=== PATIENT | female | born 1960 | race Caucasian/White ===

== ENCOUNTER 2024-11-13 11:53 | Inpatient (IN) | payer MEDICARE, SELFPAY ==
[2024-11-13 11:55] VITALS: BP 154/96; PULSE 68; RESP 16; TEMP 36.7; O2SAT 97
--- NOTE | 2024-11-13 12:15 | DI.RAD_ITS ---
Exam(s) XR KNEE LT 4V AP,LAT,PRANAY,PAT XR TIB/FIB LT EXAM: XR KNEE LT 4V AP,LAT,PRANAY,PAT and XR tib/fib LT CLINICAL HISTORY: fall off ladder. TECHNIQUE: 2D digital imaging was performed of the left knee. Seven images were obtained. Merchant ,AP, lateral and PA tunnel views were obtained. COMPARISON: There are no priors for comparison. FINDINGS: BONES: There is an acute comminuted fracture involving the anterior tibial tuberosity and anterior t ibia. There is proximal displacement of the small fracture fragments. There is also resultant proxi mal migration of the patella with patella [place]. No bony destructive lesion is seen. JOINTS: There is also anterior displacement of the tibia relative to the femoral condyles. No joint effusion is seen. No loose body. SOFT TISSUE: Normal. IMPRESSION: 1. Comminuted displaced fracture involving the anterior tibial tuberosity in anterior tibial plateau. There is distraction of the fracture fragments proximally with patella [place]. 2. Anterior subluxation of the tibia relative to the femoral condyles. DATA REPOSITORY: RADIATION DOSE DELIVERED:
--- NOTE | 2024-11-13 12:19 | ED.GENADUL_ITS ---
Discharge Plan Disposition Patient Disposition: Home Condition: Fair Discharge Details Clinical Impression: Fracture of left tibial plateau Primary Care Provider: Unknown,Unknown ED Provider: Nell Chinchilla Discharge Instructions Instructions: Oxycodone Additional Instructions: As we discussed, you suffered a significant injury today. You have a fracture and ligamentous injury to the left knee after falling. This will need to be surgically managed as noted below by Dr. Khan. Plan is to have surgical fixation of this this coming Tuesday. Likely surgical time is around 11 AM but they will call to finalize times. Please encourage rest, ice, elevation. Tylenol and/or ibuprofen as needed for discomfort, please take as directed on the packaging. You may use the oxycodone as prescribed. You may use one 5 mg tablet every 6 hours as needed for discomfort. Do not drink alcohol or drive while using this medication. Take only as prescribed and keep this in a safe place. If your pain does continue to increase or you develop increased swelling or other new/worsening symptoms, please return immediately to the hospital for reevaluation. If you have any questions regarding your orthopedic care, please call Dr. Khan's office, number listed below. Orthopaedic Instructions: - YOu should keep the knee immobilizer on at all times. - Keep the leg elevated as much as possible with foot slightly higher than the knee. - You may loosen the knee immobilizer and inspect the skin on the front of the knee. - You should use the walker to mobilize and may place the foot on the ground but not stepping on it fully (touchdown weight-bearing) - Utilize Ibuprofen and Tylenol for pain. - Start taking a baby Aspirin 81mg twice a day. - Surgery will be on Tuesday. Likely arriving at [facility] at 11am but you will be called. Referrals: Jean-Paul Khan MD [ [facility] STAFF PHYSICIAN] - [facility] General Date/Time Provider Initiated Documentation: 11/13/24 12:05 . Limitations to Documentation: no limitations . Information obtained by: patient and RN notes reviewed . History of Present Illness 64 year old F presents to the emergency department with the chief complaint of left knee pain after fall from ladder, described as severe, Quality is described as stabbing, and is localized to the left and lower extremity. Patient reports no radiation. Patient started experiencing this minute(s) and it has been constant. Immobilization improves symptom(s), Movement worsens symptoms . Patient notes no other symptoms.. Patient did receive the following treatments prior to arrival, none Related Data Allergies Allergy/AdvReac Type Severity Reaction Status Date / Time No Known Allergies Allergy Unverified 11/13/24 11:57 General Stated Complaint: Orthopedic ANNELIESE: 4 Review of Systems Constitutional Constitutional: Reports as per HPI, Denies chills, Denies fever(s) and Denies headache(s) ENT Ears, Nose, Mouth, and Throat: Denies headache(s) Cardiovascular Cardiovascular: Reports as per HPI Respiratory Respiratory: Reports as per HPI and Denies cough Musculoskeletal Musculoskeletal: Reports as per HPI and Denies tingling Integumentary/Breasts Skin/Breast: Reports as per HPI, Denies rash and Denies wounds Neurologic Neurologic: Reports as per HPI, Denies headache(s), Denies tingling and Denies paresthesias Exam Const General: cooperative, healthy appearing, comfortable, no acute distress, well developed and well groomed Nutritional Appearance: average body habitus and well nourished Orientation: alert and awake Resp Effort & Inspection: normal respiratory effort, able to speak in complete sentences and no respiratory distress Cardio Rate: regular rate Rhythm: regular rhythm Skin General skin exam: no rashes or lesions noted Lesions: no lesions Rashes: no rashes Trauma: no lacerations or abrasions Neuro General: patient alert and patient awake Cognition: normal cognition Speech: speech normal Motor: muscle tone normal throughout Sensory Exam: no sensory deficits noted Extrem Knee images: 2 1. Area of large swelling and maximal tenderness. 2+ distal pulses. Sensation intact. Full ROM of ankle. No pain in the calf, compartments are soft. No abnormality of the lateral joint line or pain in this area. No tenderness posteriorly. Did not range the knee with the noteable abnoramlity and pain with movement. No pain in the thigh with palpation Course Vital Signs Vital signs: Vital Signs Temperature 36.7 C 11/13/24 11:55 Pulse 68 11/13/24 11:55 Respiratory Rate 16 11/13/24 11:55 Blood Pressure 154/96 H 11/13/24 11:55 Pulse Oximetry 97 11/13/24 11:55 Temperature 36.7 C 11/13/24 11:55 Pulse 68 11/13/24 11:55 Respiratory Rate 16 11/13/24 11:55 Blood Pressure 154/96 H 11/13/24 11:55 Pulse Oximetry 97 11/13/24 11:55 Oxygen Delivery Method Room Air 11/13/24 11:55 Oxygen Flow Rate 0 11/13/24 11:55 Medical Decision Making Patient is a 64-year-old female brought in via EMS chief complaint of left knee pain. She reports that she was climbing an indoor short ladder that goes up to a loft and at the fifth rung the ladder kicked out sliding and she landed directly on the left knee. She did not fall completely to ground, did not strike her head, no loss of conscious. Denies any neck or back pain or other injuries. She denies any numbness or tingling. States that she tried to adjust the leg she could bear weight but found she was unable to do so. No previous surgeries or injuries to his knee. On exam, patient appears nontoxic. Hemodynamically stable. She close distal pulses. Full range of motion of the ankle. Sensation is intact in the lower extremity. No pain in the thigh. She has significant swelling to the anterior medial aspect of the left tibia. No palpable deformity at the patella or laterally but area of swelling is concerning for deformity. I do not appreciate a joint effusion but due to the swelling some of my exam is quite limited and I am concerned for potential tibial plateau fracture. Patient reports that her pain is well-controlled with ice, will hold off on any further medications at this point. Will begin with x-ray for further evaluation. No indication to suggest neurovascular injury, dislocation. XR reviewed by radiologist and myself: IMPRESSION: 1. Comminuted displaced fracture involving the anterior tibial tuberosity in anterior tibial plateau. There is distraction of the fracture fragments proximally with patella [place]. 2. Anterior subluxation of the tibia relative to the femoral condyles. Contacted orthopedics and consulted with Dr. Khan, will obtain CT for further evaluation of the sublxuation. Discussed findings with the patient and completed the neurovascular exam once again which remains stable and intact. No increase in pain, she continues to decline anything beyond ice. CT reviewed by Dr. Khan, the contrast tapers off too early, will need to reimage. Radiologist recommends extending the contrast. Dr. Khan completed doppler, does not note any concerning vascular abnormality. He advised that subluxation is reducted. Repeat CTA pending. Patient has excellent renal function but we are hydrating as this is second contrast load. Patient in knee immobilizer. Will be evaluated by PT with plan for touch down weight bearing per Dr. Khan. Discussed disposition with patient. If the repeat CT does not show vascular injury, plan with patient, Dr. Khan and myself is to send homw after PT consult, in knee immobilizer with plan for surgical intervention on Tuesday. While pain is well ocntrolled will send home with small amoutn of oxycodone. At the end of my shift, care transitioned to oncoming provider with repeat CTA pending. Patient continues to have well-controlled pain. Physical therapy will be helping to ensure that she is able to go home with a walker and weight-bear as tolerated. Patient is in a long-leg knee immobilizer. Plan for surgery this Tuesday with Dr. Khan. Supportive care encouraged occluding rest, ice, elevation was encouraged. Will send home with a few oxycodone. Patient needs to have the results of the final CTA to ensure no vascular issue. If vascular injury is noted by radiologist, this will need to be sent to [facility] for vascular surgery to review and get their input. If this does not show any vascular injury, the previously mentioned plan may be set forth. Quality:SDOH Health Related Social Needs: 2 No Data to Display PFSH All Active Problems (Updated 11/13/24 @ 16:59 by BERNIE Bazan) Fracture of left tibial plateau (Acute) Social History Smoking/Tobacco Use Status: Never Smoking risk assessment performed?: Yes Alcohol Intake: never Substance use type: does not use
--- NOTE | 2024-11-13 13:57 | W.ORTHOCONSU ---
Date of service: 11/13/24 Time of Service: 13:57 History of Present Illness Narrative: Shellie is a 64-year-old active female who was on a short ladder to a loft area of her camp when the ladder fell out her anterior left knee landed directly on the ladder rung. She had immediate pain. She tried to bear weight but had difficulties. She had notable swelling. She denies numbness or tingling. She denies any distal discoloration or swelling of the leg. She denies any previous injury to the left knee. No previous surgery of the left knee. No head trauma. No recent illness or sick contacts. Consults Consult date: 11/13/24 Requesting physician: Nell Chinchilla Consult Reason Left knee injury Assessment and Plan Assessment and plan (1) Fracture of left tibial plateau: Status: Acute Assessment and plan: Shellie is a 64-year-old female who has a fracture of her left tibial plateau. This is a very interesting pattern that is usually seen in kids. However, this is likely because she landed directly on one of the rungs of the ladder causing a stress point about the tubercle. This does need surgical treatment. The knee appeared subluxed on initial x-rays although reduced on CT scan. There likely could be some ligamentous instability that predates this injury or occurred due to the injury itself. However, the knee is now reduced. She has excellent Doppler pulses yet there are some abnormalities on the initial CT with contrast and therefore this will be repeated although unlikely to show significant abnormalities but if it did I recommend consulting with vascular surgery. Otherwise, I would recommend proceeding with operative fixation of the fracture fragments and the patellar ligament. Given that the knee is reduced this can be done in a delayed fashion. I reviewed the surgical details with her and her sister. I discussed the complexity of her case and the uniqueness of it. My initial assessment of the fracture would be that some screw stabilization of the fracture fragments of the tubercle with suture stabilization as well would be necessary. I do not think the lateral rim needs to be fixed given that it is relatively limited with weightbearing, lateral, and not extending into the metaphysis nor across the weightbearing portion of the joint. I did discuss potential complication such as bleeding, infection, pain, stiffness. I also briefly reviewed the rehabilitation time and plan with use of a knee immobilizer and slow progression of weightbearing and range of motion over the course of months. All of her questions were answered and she would like to proceed. There is no current time in the operating room today due to other add-on cases which are more urgent. However, I could complete this case on Tuesday. I recommend that she keeps the left knee in a knee immobilizer. She may do some skin inspection about the anterior knee but otherwise should have it on at all times. Touchdown weightbearing with use of a walker. Tylenol and ibuprofen for primary pain relief. Strong narcotics if necessary. Aspirin 81 mg twice daily for blood clot prevention. Surgery on Tuesday, n.p.o. after midnight at midnight. She received a phone call in to discuss time of arrival. Review of Systems All systems reviewed & are unremarkable except as noted in HPI and below PFSH All Active Problems (Updated 11/13/24 @ 15:22 by Jean-Paul Khan MD) Fracture of left tibial plateau (Acute) Social History Smoking/Tobacco Use Status: Never Smoking risk assessment performed?: Yes Alcohol Intake: never Substance use type: does not use Exam Narrative Exam Narrative: Sitting up in the wheelchair. No acute distress. Alert and orient x 3. Evaluation of left lower extremity shows notable swelling over the anterior aspect of the left knee. There is some swelling extending laterally as well. However, this seems to localize mostly to the area of the knee. There is no notable swelling from the midportion of the leg distal. There is pain to palpation about the anterior aspect of the knee with some crepitus over the proximal?anterior tibia. There is some mild pain with palpation of the lateral joint line. No significant pain with medial joint line. Range of motion was not tested. She is unable to perform a straight leg raise. The patella is noted to be in a patella jose position. Sensation intact to light touch over the deep and superficial peroneal nerve and tibial nerve. Palpable and dopplerable PT and DP pulse. No gross instability with varus and valgus stress testing of the knee. Resp Effort & Inspection: normal respiratory effort Auscultation: clear to auscultation bilaterally Cardio Rate: regular rate Rhythm: regular rhythm Results Last Vital Signs Temp 36.7 C 11/13/24 11:55 Pulse 68 11/13/24 11:55 Resp 16 11/13/24 11:55 BP 154/96 H 11/13/24 11:55 Pulse Ox 97 11/13/24 11:55 Labs 11/13/24 14:14 11/13/24 14:14 Imaging Imaging Studies: X-ray of the left knee shows a tibial tubercle fracture with proximal migration of the fracture fragments and the patella. The tibia is anterior subluxed. CT scan of the left knee with contrast shows now a reduced knee. There are multiple fracture fragments of the tibial tubercle anteriorly which also extends laterally around the lateral rim of the tibial plateau to the level of the proximal tib-fib joint. There is no significant depression or malpositioning of these components. There is no transverse component of the fracture. There is no involvement of the medial tibial plateau. Contrast is seen through the popliteal space and distal however the contrast does diminish at the level the proximal leg and there is some narrowing or decrease in caliber of the popliteal artery at the level of the knee joint. Is unclear if this is technical or a true vessel injury. I discussed the case with radiologist who recommended a repeat study.
--- NOTE | 2024-11-13 14:00 | DI.CT_ITS ---
Exam(s) CT LOWER EXTREMITY LT CTA EXAM: CT LOWER EXTREMITY LT CTA CLINICAL HISTORY: knee subluxation and tibia fracture TECHNIQUE: CTA with field of view over the knee and mid upper calf, as per request COMPARISON: CR XR TIB/FIB LT from 11/13/2024 CR XR KNEE LT 4V AP,LAT,PRANAY,PAT from 11/13/2024 FINDINGS: OSSEOUS: The previously described tibial plateau and anterior tibial tubercle displaced fractures are again noted. There are no fractures of the femoral condyles nor of the patella in the fibular head a nd neck appear intact. VASCULAR: The visualized distal SFA is unremarkable as is the proximal popliteal artery. However, the re is significant intraluminal contrast diminution in the distal popliteal artery and in the tibioper paul trunk and there is no contrast column in the calf runoff vessels. No evidence of popliteal artery aneurysm. IMPRESSION: Suspicious for possible vascular compromise/occlusion at and below the mid popliteal artery. However, there is also possibly that this finding may be artifact related to technique. Correlation with peda l pulses recommended. If clinically indicated I recommend repeating bilateral aortoiliac CTA. Findings discussed with orthopedic surgeon following completion of this study 11/13/2024
[2024-11-13] MEDS: Omnipaque 350 MG/ML 100 ML BTL IJ ×2 (14:05→16:02)
[2024-11-13 14:33] LABS: Abs Immature Grans 0.04 10^3/uL (0.0-0.06); Absolute Basophil Count 0.04 10^3/uL (0.0-0.2); Absolute Eosinophil Count 0.04 10^3/uL (0.0-0.7); Absolute Lymphocyte Count 1.45 10^3/uL (1.2-3.4); Absolute Neutrophil Count 7.45 10^3/uL (1.2-6.7); Basophils % 0.4 %; Eosinophils % 0.4 %; HCT 29.6 % (36.0-46.0); HGB 10.2 g/dL (11.2-15.7); Immature Grans % 0.4 %; Lymphocytes % 15.2 %; MCH 31.6 pg (27.0-33.0); MCHC 34.5 % (32.0-36.0); MCV 92 fL (80-95); Monocytes % 5.3 %; Neutrophils % 78.3 %; Platelet Count 283 10^3/uL (130-400); RBC 3.23 10^6/uL (3.93-5.22); RDW 13.2 % (11.7-14.6); RDW-SD 43.7 fL; WBC 9.52 10^3/uL (4.4-10.8)
[2024-11-13] MEDS: Normal Saline 1,000 ML 250 ML IV (14:36)
--- NOTE | 2024-11-13 14:47 | DI.CT_ITS ---
Exam(s) CT ABD AORTA CTA W RUNOFF EXAM: CT ABD AORTA CTA W RUNOFF CLINICAL HISTORY: further evaluation of lumen after trauma. TECHNIQUE: Imaging Protocol: Axial computed tomography images with coronal and sagittal reformatted images were created and reviewed CONTRAST MATERIAL: Intravenous: Omnipaque 350 Contrast volume:125 mL Oral: None COMPARISON: CT CT LOWER EXTREMITY LT CTA from 11/13/2024 FINDINGS: ABDOMEN: VASCULAR: There is no evidence of abdominal aortic aneurysm. Common and external and internal iliac arteries a re also patent with no significant stenosis nor aneurysms. Common femoral arteries unremarkable. Th e SFA arteries throughout the entire length of the size without significant stenosis in Misael's saulo l XXXX and the S-phase are continuous with normal appearing bilateral popliteal arteries. There is h igh division of both popliteal arteries. There is patent 3 vessel runoff both calves. OSSEOUS: Left knee tibial plateau and anterior tibial tubercle fracture noted, as documented earlier today. No other acute fractures identified. There is a large hiatal hernia. Visualized lung bases are clear. There is no ascites. LIVER: There are no focal hepatic lesions nor dilatation of intrahepatic ducts. GALLBLADDER/BILIARY: No obvious gallbladder pathology. CBD is not dilated. PANCREAS: No evidence of pancreatic mass nor dilatation of the pancreatic duct. SPLEEN: Spleen is not enlarged. There are no intrasplenic lesions. Splenic and portal veins are cuevas nt. ADRENALS: There are no significant adrenal masses. KIDNEYS: No cysts evident. No calculi nor hydronephrosis. No solid renal masses. ABDOMINAL AORTA: The abdominal aorta is not enlarged. LYMPH NODES: There is no retroperitoneal nor para-aortic adenopathy. No obvious mesenteric masses. ABDOMINAL WALL: No evidence of significant anterior abdominal wall hernia. GI: There is no evidence of bowel obstruction, free air, nor abscess. PELVIS: LYMPH NODES: There is no intrapelvic nor inguinal adenopathy. GI: No evidence of appendicitis.No evidence of sigmoid diverticulitis. URINARY BLADDER: No calculi nor masses evident REPRODUCTIVE: Uterus surgically absent. No abnormal adnexal masses. OSSEOUS: No significant osseous lesions. Multilevel chronic advanced disc space narrowing in the lumbar spine. 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 IMPRESSION: 1. Patent vessels in both lower extremities. No evidence of significant atherosclerotic disease nor aneurysms in the abdominal aorta, aortoiliac segments and outflow vessels. No evidence of significan t vascular occlusion at the level of the left popliteal artery in this patient with significant left- sided acute knee fractures. Evidence of popliteal artery aneurysms. 2. Large hiatal hernia incidentally noted 3. Other findings as above Findings discussed by phone with orthopedic surgeon following completion of this study 11/13/2024 RADIATION DOSE DELIVERED: Total DLP DATA REPOSITORY: All CT scans at this facility are submitted to the National Radiology Data Registry (NRDR) Dose Index Registry (DIR) with the [employer] (A[employer]). RADIATION OPTIMIZATION: All CT scans at this facility use at least one of these dose optimization te chniques: automated exposure control; mA and/or kV adjustment per patient size (includes targeted exa ms where dose is matched to clinical indication); or iterative reconstruction.
[2024-11-13 14:54] LABS: ALT 20 U/L (14-59); AST 26 U/L (15-37); Albumin 3.1 g/dL (3.4-5.0); Alkaline Phosphatase 63 U/L (46-116); Anion Gap 7.6 mmol/L (3-11); BUN 13 mg/dL (7-18); Bilirubin, Total 0.4 mg/dL (0.2-1.0); CO2 22.4 mmol/L (21.0-32.0); CREATININE 0.9 mg/dL (0.55-1.02); Calcium 8.3 mg/dL (8.5-10.1); Chloride 101 mmol/L (98-107); Estimated GFR 70.51 (mL/min/1.73m2); Glucose 132 mg/dL (74-106); Potassium 3.7 mmol/L (3.5-5.1); Sodium 131 mmol/L (136-145); Total Protein 5.8 g/dL (6.4-8.2)
[2024-11-13] MEDS: Lactated Ringers 1,000 ML 1000 ML IV (15:30)
[2024-11-13] MEDS: Normal Saline - Diluent 50 ML VIAL IJ (16:03)
--- NOTE | 2024-11-13 17:08 | W.ED.FU ---
Follow Up Plan: Handoff report received from Nell GIBBS, daytime KATIA. Please see her note for full HPI/ROS, physical exam, diagnostic imaging, consults, and plan of care. She was signed out to me pending CTA results. CTA of lower extremity reassuring, no evidence of vascular injuries, patent vessels in both lower extremities were noted. Radiologist did note that the findings were discussed with orthopedic surgery. I did briefly meet with Shellie to discuss discharge instructions prior to discharge. PT is in the process of putting her to the bathroom, she will be discharged after PT eval. Shellie voices agreement with plan of care, will follow-up as discussed with Dr. Khan for definitive management
--- NOTE | 2024-11-13 17:41 | PT.INIE ---
PT Notes Visit Reasons: CALEX/Fall Physical Therapy Initial Evaluation Date: 11/13/2024 Referring Doctor: Nell GIBBS PT Orders: PT CONSULT: Eval for assistive device Precautions: TDWB with knee immobilizer left lower extremity . May remove for skin inspection only. Patient Profile/Admitting Diagnosis: Shellie is a 64-year-old female presented to the ED status post fall from ladder landing on her left knee. Imaging showed IMPRESSION: 1. Comminuted displaced fracture involving the anterior tibial tuberosity in anterior tibial plateau. There is distraction of the fracture fragments proximally with patella Drummond. 2. Anterior subluxation of the tibia relative to the femoral condyles. Orth Consult with Dr Khan : recommend proceeding with operative fixation of the fracture fragments and the patellar ligament. Pt is to be TDWB with knee immobilizer may remove for skin inspection with planned surgical repair on Tuesday. PMHX: none known per patient Social History/Home Situation: Pt resides with her sister no steps to enter. 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 Independent with all ALD, home and yard management, meal preparation, shopping Equipment Owned/DME: Pt fitted for and issued FWW by [facility]. Subjective: Pt reports it hurts too much when she is trying to move . She is concerned about falling at home before she has the surgery. Objective: [] General Observation: Female seated in wheelchair with left lower extremity knee immobilizer in place and leg elevated on leg rest. Mental Status: [] Alert and oriented x 4, weepy regarding situation, agreeable to participate in assessment, able to follow instructions Pain: 5/10 left knee in standing TDWB, 0?1/10 at rest with leg elevated ROM: [] Right Upper Extremity: WNL Left Upper Extremity: WNL Right Lower Extremity: WNL Left Lower Extremity: Hip and ankle within normal limits/knee not assessed Strength: [] Right Upper Extremity: Grossly 5/5 Left Upper Extremity: 5/5 Right Lower Extremity: Hip flexion: 4/5; hip abduction: 4 -/5; hip extension: 4/5; knee extension: 4+/5; knee flexion: 4+/5 ankle DF: 4/5 ; ankle PF: 4/5 Left Lower Extremity: Knee not assessed, hip flexion 2/5, abduction 2-/5, IR/ER 2/5, ankle 3/5 no resistance due to fracture site Sensation: Intact Bed Mobility/Transfers: Supine to sit min assist of 1 for left lower extremity Sit to stand max assist of 1 to maintain touchdown weightbearing LLE with knee immobilizer from elevated surface height of 20 inches cues for hand placement Stand to sit mod assist of 1 with cue to slide left lower extremity forward Bed to chair mod assist of 1 with FWW Gait: Patient performed 2 hops with max assist of 1 to maintain TDWB left lower extremity with knee immobilizer in place. Balance: Static Sitting: Good Dynamic Sitting: Fair Static Standing: Fair minus with FWW Dynamic Standing: Poor Special Tests: [] Mobility Limitations Standardized Measure [] [facility] AM-PAC 6 clicks Basic Mobility Inpatient Short Form: [] Raw Score: 10 CMS Score: 76.75% Informed Consent/Education: Patient instructed in purpose of PT consult. Treatment: 11028 Sit to stand x 4 trials with max assist x 1 to maintain touchdown weightbearing Wheelchair to/from commode: Mod assist of 1 to maintain touchdown weightbearing Assessment: Patient is 64-year-old female presenting status post fall with subsequent left tibial plateau fracture currently touchdown weightbearing with left knee immobilizer. Patient unable to maintain touchdown weightbearing during functional tasks therefore placing her at risk for increased falls and further injury if returns to home. Recommend patient to be admitted prior to surgery for strengthening and training on touchdown weightbearing in anticipation of surgical intervention on 11/16/2024. Patient would benefit from continued skilled PT while inpatient for training and strengthening to allow her to maintain touchdown weightbearing during functional tasks and prep for postsurgical status. Patient presents with clinical signs and symptoms consistent with current/admitting diagnoses that have resulted to mobility limitations, gait instability, generalized weakness, and impairment of motor control as demonstrated by the following impairment level findings: 1. Decreased strength to left knee major muscle groups 2. Impaired standing balance 3. Limitation of joint range of motion in left knee 4. Impaired functional activity tolerance 5. Pain left knee 6. Inability to maintain touchdown weightbearing left lower extremity Impairments are contributing to the following functional limitations: 1. Inability to safely ambulate without assistive device 2. Increase completion time for mobility ADL performance 3. Increased fall risk 4. Impaired transfer skills 5. Impaired bed mobility skills Patient is assessed as a moderate complexity based on the following: History: 64-year-old female with impairment level findings, functional limitations, and past medical history as indicated above Examination: Demonstrable impairment in strength, balance, and mobility level with underlying impairments and functional limitations as documented above Presentation: Evolving Decision Making: Moderate Goals: 1. Supervised bed mobility 2. Supervised transfers with FWW maintaining weightbearing precautions 3. Supervised ambulation> 50 feet with FWW and left knee immobilizer maintaining weightbearing precautions 4. Independent home exercise program Plan of Care/Treatment Plan: 1-2x/day, 7 days/week x 1 week. Plan of care has been reviewed with the SHALE PLANER OPERATOR providing the service under Physical Therapy direction. Initiate Physical Therapy intervention for strengthening, bed mobility, transfers, gait, stairs, balance training, use of assistive device. DISCHARGE RECOMMENDATIONS: After surgery, short-term SNF versus home with home PT services TREATMENT CODE/TIME: 24900, [id number] Thank you for the opportunity to participate in the care of this patient. Yun Barr, PT [facility]
[2024-11-13 19:26] VITALS: RESP 18
[2024-11-13 19:56] VITALS: BP 142/82; PULSE 78; RESP 20; TEMP 35.9; O2SAT 99
[2024-11-13] MEDS: Ketorolac 15 MG/ML VIAL IVP (20:15)
[2024-11-13] MEDS: Acetaminophen 325 MG TAB 650 MG PO (21:04)
[2024-11-13] MEDS: oxyCODONE 5 MG TAB PO (21:04)
[2024-11-13 23:23] VITALS: BP 101/66; PULSE 80; RESP 18; TEMP 36.7; O2SAT 97
[2024-11-14] VITALS (9 sets, daily range): BP systolic 105–132; BP diastolic 68–81; PULSE 53–84; RESP 12–22; TEMP 35.8–36.8; O2SAT 95–100; BMI 31.1
--- NOTE | 2024-11-14 | DI.CT_ITS ---
Exam(s) 3D RECON ON CT WORKSTATION EXAM: 3D RECON ON CT WORKSTATION CLINICAL HISTORY: 3D reconstruction of left knee - tibial plateau fr TECHNIQUE: 3D images were reconstructed from the source data. COMPARISON: CT CT ABD AORTA CTA W RUNOFF from 11/13/[address] LOWER EXTREMITY LT CTA from 11/13/2024 FINDINGS: There is again seen a comminuted fracture involving the anterior tibial tubercle and the anterior tib ial plateau. There is proximal distraction of the fracture fragments. There has been interval reduc tion of the knee subluxation. IMPRESSION: Comminuted fracture involving the anterior aspect of the tibial plateau and involving the anterior ti bial tubercle with proximal distraction.
--- NOTE | 2024-11-14 00:01 | W.PC.ACHO ---
Registration Status: Primary Language: Preferred Language: ED Information & Data Chief Complaint Orthopedic 11/13/24 12:31 Triage Note BIBA - swelling, pain to 11/13/24 11:55 left knee, was on 5th wrung of ladder, ladder moved, landed on left knee Most Recent Vital Signs Temperature 36.7 C 11/13/24 23:23 Temperature Source Tympanic 11/13/24 23:23 Pulse 80 11/13/24 23:23 Pulse Rhythm Regular 11/13/24 19:56 Respiratory Rate 18 11/13/24 23:23 Respiratory Effort Normal 11/13/24 19:56 Respiratory Depth Normal 11/13/24 19:56 Respiratory Pattern Normal 11/13/24 19:56 Blood Pressure 101/66 11/13/24 23:23 Blood Pressure Mean 77 11/13/24 23:23 Pulse Oximetry 97 11/13/24 23:23 Oxygen Delivery Method Room Air 11/13/24 23:23 Oxygen Flow Rate 0 11/13/24 23:23 Pain Level 0 11/13/24 23:23 Allergies No Known Allergies Allergy (Unverified 11/13/24 11:57) Precautions Isolation Standard precaution 11/13/24 11:58 Active Medications Generic Name Dose Route Start Last Admin Trade Name Freq PRN Reason Stop Dose Admin Acetaminophen 650 mg 11/13/24 19:42 11/13/24 21:04 Acetaminophen 325 Mg Tab PO 650 mg Q4H PRN PRN Administration Ketorolac Tromethamine 15 mg 11/13/24 20:00 11/13/24 20:15 Ketorolac 15 Mg/Ml Vial IVP 11/18/24 19:59 15 mg Q6H TAYLOR Administration Oxycodone HCl 5 mg 11/13/24 19:42 11/13/24 21:04 Oxycodone 5 Mg Tab PO 5 mg Q3H PRN PRN Administration Pain IV IV Catheter Type [Left Saline Lock Antecubital] IV Catheter Type [Right Peripheral IV Antecubital] IV Catheter Gauge [Left 18 Antecubital] IV Catheter Gauge [Right 18 Antecubital] Diet Orders Category Date Time Status Nothing Per Oral [DIET] Nutrition 11/14/24 Breakfast Active Regular/Normal [DIET] Nutrition 11/13/24 Dinner Active Diagnostics 11/14/24 11/13/24 Range/Units 05:35 14:14 WBC Pending 9.52 (4.4-10.8) 10^3/uL RBC Pending 3.23 L (3.93-5.22) 10^6/uL Hgb Pending 10.2 L (11.2-15.7) g/dL Hct Pending 29.6 L (36.0-46.0) % MCV Pending 92 (80-95) fL MCH Pending 31.6 (27.0-33.0) pg MCHC Pending 34.5 (32.0-36.0) % RDW Pending 13.2 (11.7-14.6) % Plt Count Pending 283 (130-400) 10^3/uL MPV Pending 10.0 (8.0-11.0) fL Immature Gran % 0.4 % Neutrophils % 78.3 % Lymphocytes % 15.2 % Monocytes % 5.3 % Eosinophils % 0.4 % Basophils % 0.4 % Nucleated RBC % 0.0 (0.0-0.3) % Absolute Neutrophils 7.45 H (1.2-6.7) 10^3/uL Absolute Lymphocytes 1.45 (1.2-3.4) 10^3/uL Absolute Monocytes 0.50 (0.1-0.8) 10^3/uL Absolute Eosinophils 0.04 (0.0-0.7) 10^3/uL Absolute Basophils 0.04 (0.0-0.2) 10^3/uL Sodium Pending 131 L (136-145) mmol/L Potassium Pending 3.7 (3.5-5.1) mmol/L Chloride Pending 101 (98-107) mmol/L Carbon Dioxide Pending 22.4 (21.0-32.0) mmol/L Anion Gap Pending 7.6 (3-11) mmol/L BUN Pending 13 (7-18) mg/dL Creatinine Pending 0.9 (0.55-1.02) mg/dL Est GFR (CKD-EPI 2020) Pending 70.51 (mL/min/1.73m2) Glucose Pending 132 H (74-106) mg/dL Calcium Pending 8.3 L (8.5-10.1) mg/dL Total Bilirubin 0.4 (0.2-1.0) mg/dL AST 26 (15-37) U/L ALT 20 (14-59) U/L Alkaline Phosphatase 63 (46-116) U/L Total Protein 5.8 L (6.4-8.2) g/dL Albumin 3.1 L (3.4-5.0) g/dL ABO/Rh O Negative Antibody Screen NEGATIVE Intake and Output - 24 Hour Total 11/13/24 11:51 thru 11/13/24 23:37 Intake Total 1530 Output Total 600 Balance 930 Weight 82.3 kg Intake: IV 1530 Output: Urine 600 Other: Urine Color Yellow Urine Appearance Clear Urine Odor Normal Falls Risk Assessment History of Falls Admit Due to Fall 11/13/24 19:56 Contributing Factors Impairments 11/13/24 13:34 Ambulatory Aids Uses ambulatory device + 11/13/24 19:56 Tubes/Lines With any additional score 11/13/24 19:56 Gait Evaluation W/any additional score 11/13/24 19:56 Cognition No cognitive impairment 11/13/24 19:56 Fall Total Score 95 11/13/24 19:56 Level of Risk Maximum Risk 11/13/24 19:56 Problems (Last Reviewed 11/13/24 @ 15:19 by Jean-Paul Khan MD) Fracture of left tibial plateau (Acute) v v v v v v v v v Sending and/or Receiving Nurses: Please use comment section below to note any information pertinent to the patient hand-off not included above. Information / Comments: Pt admitted for fractured leg, pending surgical repair. Report received from: MELL Schreiber
[2024-11-14] MEDS: Ketorolac 15 MG/ML VIAL IVP ×3 (02:08→19:54)
[2024-11-14] MEDS: Normal Saline Flush 10 ML SYR IVP ×4 (02:11→19:53)
[2024-11-14] MEDS: oxyCODONE 5 MG TAB PO ×2 (04:36→22:37)
[2024-11-14] MEDS: Acetaminophen 325 MG TAB 650 MG PO ×2 (04:36→22:37)
[2024-11-14 06:20] LABS: HCT 30.1 % (36.0-46.0); HGB 10.3 g/dL (11.2-15.7); MCH 31.3 pg (27.0-33.0); MCHC 34.2 % (32.0-36.0); MCV 92 fL (80-95); MPV 10.2 fL (8.0-11.0); Platelet Count 249 10^3/uL (130-400); RBC 3.29 10^6/uL (3.93-5.22); RDW 13.3 % (11.7-14.6); WBC 7.14 10^3/uL (4.4-10.8)
[2024-11-14 06:31] LABS: Anion Gap 8.6 mmol/L (3-11); BUN 11 mg/dL (7-18); CO2 24.4 mmol/L (21.0-32.0); CREATININE 0.8 mg/dL (0.55-1.02); Calcium 8.7 mg/dL (8.5-10.1); Chloride 106 mmol/L (98-107); Estimated GFR 81.21 (mL/min/1.73m2); Glucose 115 mg/dL (74-106); Potassium 3.3 mmol/L (3.5-5.1); Sodium 139 mmol/L (136-145)
[2024-11-14] MEDS: Omeprazole 20 MG CAPCR PO (07:41)
[2024-11-14] MEDS: Lactated Ringers 1,000 ML 75 ML IV (07:41)
--- NOTE | 2024-11-14 07:50 | W.PM.PROGNOT ---
Date of Service Date of service: 11/14/24 Time of Service: 07:15 Assessment and Plan Assessment and plan (1) Fracture of left tibial plateau: Status: Acute (2) Avulsion of left patellar tendon: Status: Acute Assessment and plan: Shellie is a 64-year-old active female who has a complex and quite unusual tibial plateau fracture on the left side involving the tibial tubercle and the lateral rim of the tibial plateau. There is no significant weightbearing involvement except for very small aspect in the posterior lateral corner of the knee by the proximal tib-fib joint. However, she has proximal displacement of the patella, patellar ligament this is behaving like a patellar avulsion although there are some bony fragments. I had planned to perform the surgery in an elective nature on Tuesday. However, she was unable to leave the hospital due to pain and difficulty with weightbearing. Therefore, she was admitted for pain control and physical therapy. I did discuss treatment options once again recommend fixation of the tibial tubercle and the patella ligament. The lateral plateau does not involve a significant portion of the weightbearing plateau and thus I do not think it needs to be truly fixed. It is imperative that we get the patellar ligament back in to an appropriate position. She did have some subluxation on the initial x-ray which may represent either acute or chronic ACL and/or PCL injury. There also could be meniscal injury as well such as a meniscal root. However, at this point I would recommend treating the patellar ligament. We can consider MRI to further evaluate the internal structures of the left knee. However, the most pressing issue at this point is the patellar ligament. I recommend we proceed with surgery, potentially today. She is NPO. I reviewed the tentacle details of the surgery. I discussed the risk to include bleeding, infection, pain, stiffness, hardware prominence, hardware failure, weakness, retear or future displacement, need for repeat procedures. Despite these risks, she elects to proceed. After surgery she still will be touchdown weightbearing with the leg in full extension with a knee immobilizer. Labs are stable and she has no other significant medical issues. Subjective Subjective Interval history since last seen: Shellie is a 64-year-old female who has a proximal tibia fracture on the left side. This is a very interesting mechanism as she fell directly onto a rung of the ladder and suffered a primary tibial tubercle avulsion fracture. She has some subluxation of the tibia which prompted a CTA. Eventually CTA showed no vessel injury she had maintenance of palpable and dopplerable pulses. She tried to mobilize with touchdown weightbearing in a knee immobilizer was unable to do so. Therefore, she was admitted for pain control and physical therapy. She denies any acute issues overnight. She denies any new symptoms distally within the leg. She does report pain about the left knee which has responded to medications. Exam Narrative Exam Narrative: Laying in the supine position in the hospital bed. No acute distress. Alert and orient x 3. Evaluation of the left lower extremity shows notable swelling of the anterior aspect of the left leg. There is minimal ecchymosis. No skin breakdown. The skin is quite tight over the anterior knee but it has wrinkles and is compressible although with pain. No significant swelling distally. Sensation intact light touch over the deep and superficial peroneal nerve and tibial nerve. Palpable DP and PT pulse. She has active and full ankle dorsiflexion, plantarflexion, great toe extension, great toe flexion. Objective Last Vital Signs Temp 36.6 C 11/14/24 07:25 Pulse 66 11/14/24 07:25 Resp 12 11/14/24 07:25 BP 115/73 11/14/24 07:25 Pulse Ox 98 11/14/24 07:25 Laboratory Results - last 24 hr 11/13/24 11/14/24 14:14 06:00 WBC 9.52 7.14 RBC 3.23 L 3.29 L Hgb 10.2 L 10.3 L Hct 29.6 L 30.1 L MCV 92 92 MCH 31.6 31.3 MCHC 34.5 34.2 RDW 13.2 13.3 Plt Count 283 249 MPV 10.0 10.2 Immature Gran % 0.4 Neutrophils % 78.3 Lymphocytes % 15.2 Monocytes % 5.3 Eosinophils % 0.4 Basophils % 0.4 Nucleated RBC % 0.0 Absolute Neutrophils 7.45 H Absolute Lymphocytes 1.45 Absolute Monocytes 0.50 Absolute Eosinophils 0.04 Absolute Basophils 0.04 Sodium 131 L 139 Potassium 3.7 3.3 L Chloride 101 106 Carbon Dioxide 22.4 24.4 Anion Gap 7.6 8.6 BUN 13 11 Creatinine 0.9 0.8 Est GFR (CKD-EPI 2020) 70.51 81.21 Glucose 132 H 115 H Calcium 8.3 L 8.7 Total Bilirubin 0.4 AST 26 ALT 20 Alkaline Phosphatase 63 Total Protein 5.8 L Albumin 3.1 L ABO/Rh O Negative Antibody Screen NEGATIVE Time Spent with Patient Time Spent with Patient: 25-34 minutes Time was spent: preparing to see the patient(eg.review tests), ordering medications,tests, procedures, indepentently interpreting results and counseling the patient
[2024-11-14] MEDS: FLUoxetine 20 MG CAP 40 MG PO (07:53)
--- NOTE | 2024-11-14 09:36 | INITIAL_ITS ---
Date of service: 11/14/24 Time of Service: 09:36 Care Management Initial Assmt Initial Assessment Reason for Hospitalization: tibial plateau fracture Functional Status/Living Situation Patient Presentation: Shellie was lying in bed chatting with a visitor when CM attempted to meet with her. The patient and visitor requested CM return after the visit. When CM returned a short while later, Shellie had been taken to the OR so was unable to meet with her. Information was obtained from staff and chart review. Town of Residence: [facility] Medications Medication Management: No Issues/Barriers identified Advance Directives Advance Directives: Do you have an Advance Directive: AD On File at [facility]: N 11/13/24 13:29 Date Asked 11/13/24 11/13/24 13:29 AD Date Reviewed COLST On File at [facility] COLST Date Scanned Code Status Resuscitation Status Full Code Portal Pt does not currently have a portal and education provided: Yes Insurance Coverage/Financial Issues Insurance: BC/BS Medicare Advantage Care Team Visit Care Team Role Provider Type Unknown Unknown Primary Care Provider STAFF PHYSICIAN [facility] Other Providers OTHER [facility] Provider NURSE PRACTITIONER Jean-Paul Khan MD Admit Provider [facility] STAFF PHYSICIAN Attending Provider Discharge Potential Discharge Needs: Surgical F/U Appt Anticipated Barriers to Discharge: Medical Status Patient/Family Education Needs: Review discharge instructions, discuss Ask Me Three Transportation: Private vehicle Plan: Anticipate Shellie will be discharged home, possibly with new home health services, when medically stable. She will follow up with her surgeon, PCP and plan of care and transport with family. CM will follow and continue to support discharge planning. Social Determinants of Health Screening Social Determinants of health last assessed in clinic: 11/13/24 Will the Patient Participate in the Screening?: Yes Do you worry about having a steady place to live?: no Problems where you live: no known problems In the past 12 months, have you had to go without electric, gas, oil or water in your home?: no Has lack of transportation kept you from medical appointments or from doing things needed for daily living?: no Has anyone in your life made you feel unsafe or unsupported?: no How hard is it for you to pay for the very basics like food, housing, medical care, and heating? Would you say it is:: Not hard at all Do you want help finding or keeping work or a job?: I do not need or want help If for any reason you need help with day-to-day activities such as bathing, preparing meals, shopping, managing finances, etc., do you get the help you need?: I get all the help I need How often do you feel lonely or isolated from those around you?: Rarely Do you speak a language other than Sudanese at home?: No Does the patient want assistance with any of the above?: No Health Related Social Needs Health related social needs: feeling lonely/isolated (Z60.8) Health related social needs details: none PFSH All Active Problems (Updated 11/14/24 @ 07:54 by Jean-Paul Khan MD) Avulsion of left patellar tendon (Acute) Fracture of left tibial plateau (Acute) Social History Smoking/Tobacco Use Status: Never Smoking risk assessment performed?: Yes Alcohol Intake: never Substance use type: does not use Housing: house
--- NOTE | 2024-11-14 10:54 | ANES.PREOP_ITS ---
General Info Date of Service Date Performed: 11/14/24 Height: 5 ft 4 in Weight: 82.3 kg Body Mass Index (BMI): 31.1 Surgical Procedure: Operation Date: 11/14/24 16:40 Proposed Procedure Side Surgeon p Tibial ORIF Left Jean-Paul Khan MD Meds Allergies and Home Medications Allergies Allergy/AdvReac Type Severity Reaction Status Date / Time No Known Allergies Allergy Unverified 11/13/24 11:57 Home Medication ?Medication ?Instructions ?Recorded Unknown [Unable to Obtain] 11/13/24 Current Visit Medications: Current Medications Generic Name Dose Route Start Last Admin Trade Name Freq PRN Reason Stop Dose Admin Acetaminophen 650 mg 11/13/24 19:42 11/14/24 04:36 Acetaminophen 325 Mg Tab PO 650 mg Q4H PRN PRN Administration Fluoxetine HCl 40 mg 11/14/24 08:30 11/14/24 07:53 Fluoxetine 20 Mg Cap PO 40 mg QAM TAYLOR Administration Ringer's Solution 1,000 mls @ 75 mls/hr 11/14/24 07:15 11/14/24 07:41 IV 75 mls/hr INFUSION TAYLOR Administration Ketorolac Tromethamine 15 mg 11/13/24 20:00 11/14/24 08:02 Ketorolac 15 Mg/Ml Vial IVP 11/18/24 19:59 15 mg Q6H TAYLOR Administration Morphine Sulfate 4 mg 11/13/24 19:42 Morphine 10 Mg/Ml Vial IVP Q1H PRN PRN Omeprazole 20 mg 11/14/24 07:30 11/14/24 07:41 Omeprazole 20 Mg Capcr PO 20 mg DAILY@0730 TAYLOR Administration Oxycodone HCl 5 mg 11/13/24 19:42 11/14/24 04:36 Oxycodone 5 Mg Tab PO 5 mg Q3H PRN PRN Administration Pain Sodium Chloride 0 ml 11/13/24 20:17 11/14/24 07:41 Normal Saline Flush 10 Ml Syr IVP 10 ml PRN PRN Administration Sodium Chloride 0 ml 11/13/24 20:18 Normal Saline Flush 10 Ml Syr IVP PRN PRN PFSH Active Problems Active Problems: Problem Status Onset Code Avulsion of left patellar tendon Acute S86.892A Fracture of left tibial plateau Acute S82.142A Tobacco Smoking/Tobacco Use Status: Never Alcohol Alcohol Intake: never Substance Use Substance use type: does not use Vital Signs and Lab Results Vital Signs Most Recent Vital Signs in EMR: Most Recent Vital Signs Temp Pulse Resp BP Pulse Ox 36.6 C 66 12 115/73 98 11/14/24 07:25 11/14/24 07:25 11/14/24 07:25 11/14/24 07:25 11/14/24 07:25 Lab Results 11/14/24 06:00 11/14/24 06:00 Blood Type / Crossmatch: 2 Antibody Screen NEGATIVE 11/13/24 Complete Blood Count: 2 White Blood Count 7.14 10^3/uL (4.4-10.8) 11/14/24 06:00 Red Blood Count 3.29 10^6/uL (3.93-5.22) L 11/14/24 06:00 Hemoglobin 10.3 g/dL (11.2-15.7) L 11/14/24 06:00 Hematocrit 30.1 % (36.0-46.0) L 11/14/24 06:00 Platelet Count 249 10^3/uL (130-400) 11/14/24 06:00 Complete Metabolic Panel: 2 Sodium 139 mmol/L (136-145) 11/14/24 06:00 Potassium 3.3 mmol/L (3.5-5.1) L 11/14/24 06:00 Chloride 106 mmol/L (98-107) 11/14/24 06:00 Carbon Dioxide 24.4 mmol/L (21.0-32.0) 11/14/24 06:00 BUN 11 mg/dL (7-18) 11/14/24 06:00 Creatinine 0.8 mg/dL (0.55-1.02) 11/14/24 06:00 Est GFR (CKD-EPI 2020) 81.21 (mL/min/1.73m2) 11/14/24 06:00 Calcium 8.7 mg/dL (8.5-10.1) 11/14/24 06:00 Albumin 3.1 g/dL (3.4-5.0) L 11/13/24 14:14 Glucose 115 mg/dL (74-106) H 11/14/24 06:00 Liver Function Panel: 2 Alanine Aminotransferase (ALT/SGPT) 20 U/L (14-59) 11/13/24 14: 14 Aspartate Amino Transf (AST/SGOT) 26 U/L (15-37) 11/13/24 14:14 Coagulation Panel: 2 No Data to Display Cardiac Panel: 2 No Data to Display Arterial Blood Gas: 2 No Data to Display Venous Blood Gas: 2 No Data to Display Pancreas Panel: 2 No Data to Display Thyroid Panel: 2 No Data to Display Infectious Disease: 2 No Data to Display Blood Cultures: 2 No Data to Display Toxicology Panel: 2 No Data to Display Imaging and Studies Imaging and Studies Study information below may be from another EMR and interpreted by another provider. Please see original notes in EMR for more complete details. Other Study Summary:: Reviewed CTA, reviewed films since admission Anesthesia Assessment and Plan Anesthesia History Personal History: No History of Anesthesia Complications Family History: No Family History of Anesthesia Complications Exercise Tolerance Exercise Tolerance: Metabolic Equivalents>4 Pertinent Negatives Pertinent Negatives: No Major Cardiovascular Symptoms or Complaints, No Major Pulmonary Symptoms or Complaints and No History of CVA/TIA Cardiac & Pulmonary Exam Cardiac Exam: Normal S1/S2 Heart Sounds Pulmonary Exam: Clear Bilateral Breath Sounds Implantable Cardiac Device Does patient have a Pacemaker or an ICD?: No Airway Exam Known Difficult Airway: No Mallampati Class: 2 Mouth Opening: Normal (> 3cm) Thyromental Distance: Greater than 3 cm Neck Range of Motion: Full ROM Neck Circumference: Normal Teeth Condition: Normal Dentition ASA Classification ASA Score: ASA 2 Emergency Case?: No NPO Status NPO Status: NPO Clears >2 hours, Solids >8 hours Anesthesia Plan Resuscitation Status: Full Code Anesthesia Technique: Spinal Anesthesia Airway Planned: Natural Airway Pain Management: Surgeon and patient request nerve block (recsue) Monitors Used: Standard Monitors Preoperative Comments:: 64 yo female with fall off ladder, no LOC. Hx of hysterectomy, wisdom teeth removal, and left breast lumpectomy. No Anesthetic problems in the past Appropriately NPO, wants to proceed with spinal and sedation, GETA as backup. Rescue adductor canal block as necessary.
--- NOTE | 2024-11-14 11:00 | PT.INTREAT ---
PT Notes Visit Reasons: Left Tibial Plateau Fracture Inpatient Physical Therapy Treatment Note [facility] Date: 11/14/2024 PRECAUTIONS: TDWB left LE with knee immobilizer, may be removed for skin check. N.p.o. pending surgery [] SUBJECTIVE: Patient reports she may be going to surgery today. Patient states she is glad she stayed and did not go home last night OBJECTIVE: Patient alert upright in bed IV fluids infusing right antecubital. ? PAIN: Left knee rest 0 ; with movement 10/11 Therapeutic Activities (14485d[]): Direct one-on-one instruction in dynamic activities to improve functional performance. ? BED MOBILITY/TRANSFERS? Rolling L/R: Min assist to roll to right Supine-sit: Min assist for lower extremity ? Sit-supine: Min assist for lower extremity ? Sit-stand: From elevated bed to FWW min assist to maintain TDWB? Stand-sit: CGA with verbal cues to lift left LE to ensure maintaining TDWB from FW W to elevated bed height? Bed-commode: Lateral scoot with armrest removed min assist for supporting left lower extremity ? Commode-bed: With armrest removed min assist for support of left lower extremity lateral scoot ASSESSMENT: Patient tolerated session well with improved ability to perform lateral scoot and support left lower extremity requiring less assistance as compared to initial evaluation in emergency room. Anticipate patient to have surgery on this date later this afternoon. Patient may require reassessment of functional abilities after surgery. Pain, knee immobilizer and TDWB are limiting factors for patient at this time to perform ambulation with FWW. PLAN: 1-2x/day, 7 days/week x 1 week. Plan of care has been reviewed with the [employer] MANAGER providing the service under Physical Therapy direction. Initiate Physical Therapy intervention for strengthening, bed mobility, transfers, gait, stairs as appropriate, balance training, use of assistive device. TREATMENT CODE/TIME: 14401/ [id number] DISCHARGE RECOMMENDATION: Pending functional progress status post surgery short-term SNF versus home with HH PT
--- NOTE | 2024-11-14 12:30 | DI.RAD_ITS ---
Exam(s) XR KNEE LT 1V EXAM: XR KNEE LT 1V CLINICAL HISTORY: Fracture of left tibial plateau:. TECHNIQUE: 2D digital imaging was performed. COMPARISON: X-rays 1 day prior reviewed FINDINGS: Fluoroscopy provided intraoperatively during open reduction internal fixation of tibial plateau and a nterior tibial tubercle fracture. See procedure report for details Total fluoroscopy time 11 seconds IMPRESSION: Radiation exposure index/cumulative dose:Ka,r= 0.5661 mGy DATA REPOSITORY: RADIATION DOSE DELIVERED:
--- NOTE | 2024-11-14 13:22 | CHAPLAIN ---
Shellie was in bed, waiting to have surgery on her leg. She was pleasant and easily engaged in a conversation. I explained my role and offered support.
[2024-11-14] MEDS: ceFAZolin 2 GM/50 ML BAG IVPB (14:53)
[2024-11-14] MEDS: TRANEXAMIC ACID/SOD. CHL. 1,000 MG/100 ML BAG 600 MG IVPB (15:15)
[2024-11-14] MEDS: Bupivacaine 0.5% Pres-Free W/EPI 30 ML VIAL (16:07)
--- NOTE | 2024-11-14 16:58 | W.PM.OP ---
Operative Note Operative Note PRE-OP DIAGNOSIS: Left proximal tibia fracture PROCEDURE: Open reduction internal fixation of left proximal tibia fracture SURGEON: Jean-Paul Khan [employer] DEVELOPMENT MANAGER: Juan Andrews ANESTHESIA TYPE: Spinal Refer to Anesthesia Record ESTIMATED BLOOD LOSS: 150 TOURNIQUET TIME: 0 COMPLICATIONS: None Patient was transported to: PACU Patient's condition: stable Indications: Shellie is a 64-year-old female who fell yesterday onto her left knee. She had a subluxation of the knee as well as a comminuted fracture about the proximal left tibia. Given the avulsion of the patellar ligament equivalent as well as the comminution and subluxation I recommend proceeding with operative fixation. I discussed the tentacle details of the surgery. I reviewed the risk to include bleeding, infection, pain, stiffness, hardware prominence, or failure, malunion, nonunion, loss of reduction, weakness, stiffness, need for repeat procedures. I was also honest with Shellie that she may need future MRI and another surgery for potential ligamentous injury. Despite of this, she elected to proceed. Findings: There was a comminuted fracture about the proximal tibia with 2 tibial tubercle portions. Only 1 piece was large of total screw. It was able to be reduced and held with a single 4.0 mm cannulated screw. This was also backed up with a suture bridge type construct with suture through the patellar ligament crossing over the fractured bone and into the proximal tibia through suture anchors. There is also a shelf of bone anteromedially for which the meniscus and capsule was attached. This was able to be reduced anatomically and held with a suture anchor. Contralateral leg does show significant mount of hyperextension as well as laxity with varus and to lesser extent valgus stress. The left knee after repair of the patellar ligament had about 20 to 25 degrees of hyperextension. There was approximately 8 to 9 mm of excursion with varus stress testing in about 2-3 with valgus stress testing. There also seem to be instability with anterior drawer. Posterior drawer seem to be mostly stable. Procedure Description: Shellie was greeted in preoperative holding area. It was confirmed the correct size identified and marked. The consent was reviewed the patient and signed. She was taken to the operating room placed in supine position after a spinal anesthetic was administered. The left leg was then prepped ChloraPrep and draped in a sterile fashion. No tourniquet was utilized. A timeout is performed for safe surgery Midline incision was made overlying the knee. This taken out sharply through the skin. Bleeding was controlled with electrocautery. There is notable destruction of the soft tissues in this area. There is retinacular and capsular tears in addition to some tearing of the lateral third of the patellar ligament. Her ligament was in a superior position attached to bony pieces. The more distal piece was larger. I was able to manually reduce this into the fracture bed. I then irrigated the knee thoroughly. Sharp debridement was performed remove any clot from the bone beds. The patellar ligament was elevated proximally and I was able to look into the knee. There appeared to be some fibers coming from within the knee which I presume to be the ACL. The medial meniscus and intrameniscal ligament was identified. This was still attached to the capsule as well as the anterior medial bony fragment. This was stable and therefore I did not further investigate into the joint. I did irrigate into the joint. With debridement and irrigation performed, I proceeded to place 2 fiber tape sutures into the patellar ligament in a locking Krak?w fashion leaving for total tails. This was used to mobilize the patellar ligament and the associated fragment. The fragment was reduced into its bony bed, confirmed with x-ray and with direct visualization. While in this position, supported by the sutures, I placed a single K wire from the 4.0 mm cannulated screw system. This was placed through the proximal tibia and out the posterior cortex, observed on x-ray did not penetrate too far posteriorly. This was then measured and drilled. A 4.0 millimeter screw with a washer was then placed with excellent fixation and bite. I then completed the suture bridge type construct utilizing two 4.75 mm swivel lock anchors distal to the fracture. The suture bridge laid on top of the fractured bone to support the avulsed fragment. These anchors had excellent purchase and were performed without difficulty. I then turned my attention to this anterior medial fragment. It was extremely thin, mostly just cortex. Therefore I placed a single 4.75 mm swivel lock anchor within the bony bed of the proximal tibia. Once this was placed I used 2 sutures to wrap around the bony fragment, incorporating the capsular attachments to this bony fragment. This was tied over the fragment itself which excellently reduced the fragment down onto its bony bed. The knee was then thoroughly inspected. I did not see anything else that was worthwhile to fix. X-ray showed an anatomic reduction of the knee with appropriate plate screw. The knee was then tested for stability and did show some laxity with varus stress of about 8 to 9 mm but yet there is a firm endpoint at 0 and 30 degrees. Valgus stress was stable at about 3 to 4 degrees with a firm endpoint. There seem to be laxity with anterior drawer performed at 30 degrees of flexion. There was about 20 to 25 degrees of hyperextension. The nonoperative leg was investigated previously and show that it also had hyperextension as well as some laxity with varus stress. I then used #1 Vicryl to close the retinaculum and the capsule. The tearing was quite irregular throughout. I worked to try to reconstruct the capsule and contain all synovium. The deep tissues and subcutaneous tissues were then injected with 0.25% bupivacaine with epinephrine. The wound was once again irrigated. This wound was then closed with 0 Vicryl followed by 2-0 Vicryl and then followed by 3-0 Monocryl in a running, subcuticular pattern. This was reinforced with skin glue. Mepilex dressing was applied followed by an Andrea wrap. She was placed back into a knee immobilizer. Shellie will be touchdown weightbearing on the left lower extremity with a knee in extension within the knee immobilizer. No active range of motion at this time. She will start anticoagulation tomorrow. PT will start tomorrow as well. Date of Procedure: 11/14/24
--- NOTE | 2024-11-14 18:44 | W.ANESPOSTOP ---
Postoperative Evaluation Date, Time and Location Date Performed: 11/14/24 Time Performed: 18:05 Patient Location: Med/Surg Vital Signs Most Recent Imported Vital Signs: Most Recent Vital Signs Temp Pulse Resp BP Pulse Ox 36.8 C 62 16 111/72 98 11/14/24 18:03 11/14/24 18:03 11/14/24 18:03 11/14/24 18:03 11/14/24 18:03 Pain Score Most Recent Pain Score: Most Recent Pain Score Pain Level [Left Knee] 4 11/13/24 13:34 Pain Level 0 11/14/24 17:38 Assessment Mental Status: Awake (Alert & Oriented to Patient Baseline) Airway and Respiratory Function: Patent airway with normal (patient baseline) respiratory exam Cardiovascular Function: Hemodynamically Stable Hydration Status: Adequately Hydrated Nausea & Vomiting: No Nausea or Vomiting Pain: Pt. Denies Any Pain Peripheral Nerve Block: Patient did not receive a nerve block Postoperative Comments:: Spinal still in place and will resolve over next 2-3 hours.
[2024-11-14] MEDS: Tranexamic Acid 650 MG TAB 1300 MG PO (19:52)
[2024-11-14] MEDS: ceFAZolin 1 GM/50 ML BAG IVPB (19:52)
[2024-11-15] MEDS: Ketorolac 15 MG/ML VIAL IVP ×2 (01:44→07:35)
[2024-11-15] MEDS: Normal Saline Flush 10 ML SYR IVP ×2 (01:44→04:06)
[2024-11-15] MEDS: ceFAZolin 1 GM/50 ML BAG IVPB (04:05)
[2024-11-15] MEDS: oxyCODONE 5 MG TAB PO (04:06)
[2024-11-15] MEDS: Acetaminophen 325 MG TAB 650 MG PO (04:07)
[2024-11-15 06:18] LABS: HCT 27.3 % (36.0-46.0); HGB 9.2 g/dL (11.2-15.7); MCH 31.3 pg (27.0-33.0); MCHC 33.7 % (32.0-36.0); MCV 93 fL (80-95); MPV 10.1 fL (8.0-11.0); Platelet Count 217 10^3/uL (130-400); RBC 2.94 10^6/uL (3.93-5.22); RDW 13.5 % (11.7-14.6); RDW-SD 46.1 fL; WBC 10.19 10^3/uL (4.4-10.8)
[2024-11-15 06:44] LABS: Anion Gap 7.1 mmol/L (3-11); BUN 14 mg/dL (7-18); CO2 23.9 mmol/L (21.0-32.0); CREATININE 0.7 mg/dL (0.55-1.02); Calcium 8.7 mg/dL (8.5-10.1); Chloride 105 mmol/L (98-107); Estimated GFR 95.32 (mL/min/1.73m2); Glucose 133 mg/dL (74-106); Potassium 4.6 mmol/L (3.5-5.1); Sodium 136 mmol/L (136-145)
[2024-11-15] MEDS: Omeprazole 20 MG CAPCR PO (07:34)
[2024-11-15] MEDS: FLUoxetine 20 MG CAP 40 MG PO (07:34)
[2024-11-15] MEDS: Enoxaparin 40 MG/0.4 ML SYR SC (07:35)
[2024-11-15 08:02] VITALS: BP 120/72; PULSE 64; RESP 14; TEMP 36.6; O2SAT 96
--- NOTE | 2024-11-15 08:09 | DSE_ITS ---
Date of service: 11/15/24 Time of Service: 07:50 DS: Diagnosis Discharge Diagnosis (1) Fracture of left tibial plateau: Status: Acute (2) Avulsion of left patellar tendon: Status: Acute Discharge Plan Disposition Patient Disposition: Home Condition: Good Discharge Details Reason For Visit: Left Tibial Plateau Fracture Admit Date/Time: 11/13/24 17:52 Admit Provider: Jean-Paul Khan Attending Provider: Jean-Paul Khan Primary Care Provider: Unknown,Unknown Hospital Course Hospital Course: Patient was admitted to the medical/surgical floor for pain management and mobilization of the fracture. The surgery was tolerated well without any notable medical, surgical, or anesthetic complications. Mobilization began postoperatively. She was voiding spontaneously. Vitals were stable. Physical therapy worked with the patient and was cleared for discharge home. No acute medical issues. Pain was controlled on oral regimen. Home Meds and New Rx's Prescriptions: New acetaminophen 500 mg tablet 1,000 mg PO Q8H PRN (Reason: pain) Qty: 90 3RF aspirin 81 mg tablet,delayed release (DR/EC) 81 mg PO BID Qty: 60 0RF celecoxib 200 mg capsule 200 mg PO BID PRN (Reason: pain) Qty: 60 1RF tramadol 50 mg tablet 50 mg PO Q4H PRNQty: 12 0RF Continued omeprazole 20 mg capsule,delayed release(DR/EC) 20 mg PO DAILY fluoxetine 40 mg capsule 40 mg PO DAILY bupropion HCl 300 mg tablet extended release 24 hr 300 mg PO DAILY Discharge Instructions Instructions: Oxycodone Additional Instructions: Orthopaedic Instructions: - You should keep the knee immobilizer on at all times. - You should remove the MICHEAL wrap on Tuesday. The dressing of the wound (Mepilex) will stay in place until followup. - Keep the leg elevated as much as possible with foot slightly higher than the knee. - You may loosen the knee immobilizer and inspect the skin on the front of the knee, applying ice. You may keep it undone while the leg is supported and you are awake. However, you should have this fastened tightly when asleep, not paying attention, or moving. - You should use the walker/crutches to mobilize and may place the foot on the ground but not stepping on it fully (touchdown weight-bearing) - Utilize Celebrex and Tylenol for pain. You have Tramadol for breakthrough pain. - Start taking a baby Aspirin 81mg twice a day. - Followup in 2 weeks. Referrals: Jean-Paul Khan MD [ [facility] STAFF PHYSICIAN] - Activity:: TDWB with immobilizer Equipment/Supplies:: Walker Diet:: As Tolerated Discharge Orders Discharge Orders: Discharge Order (Routine); Ordered 11/15/24 Ordered By: Jean-Paul Khan DS: Summary Time Spent with Patient providing and/or coordinating discharge services: Greater than 30 minutes Status at Discharge Functional status at discharge: uses cane/walker Overall status at discharge: patient is progressing back to baseline Mental Status: mental status grossly normal Speech and Movement: speech and movement normal Mood: congruent mood Affect: normal affect Quality:SDOH Health Related Social Needs: Health related social needs feeling lonely/isolated (Z 60.8) Health related social needs details none Health related social needs details: none Exam Narrative Exam Narrative: Laying in the bed, supine. NAD. AAOx3. LLE dressing c/d/i. Able to SLR. SILT DP/SP/Tib. +ADF/APF/EHL/FHL. Psych Mental Status: mental status grossly normal Speech and Movement: speech and movement normal Mood: congruent mood Affect: normal affect DS: Data Vitals/I&O Vitals and I&O: Vital Signs Temperature 36.2 C L 11/14/24 22:48 Temperature Source Tympanic 11/14/24 22:48 Pulse 84 11/14/24 22:48 Pulse Rhythm Regular 11/13/24 19:56 Respiratory Rate 22 11/14/24 22:48 Respiratory Effort Normal 11/13/24 19:56 Respiratory Depth Normal 11/13/24 19:56 Respiratory Pattern Normal 11/13/24 19:56 Blood Pressure 127/80 11/14/24 22:48 Blood Pressure Mean 95 11/14/24 22:48 Pulse Oximetry 95 11/14/24 22:48 Oxygen Delivery Method Room Air 11/14/24 22:48 Oxygen Flow Rate 0 11/14/24 22:48 Pain Level 5 11/15/24 04:07 Intake & Output 11/14/24 11/14/24 11/15/24 11:59 23:59 11:59 Intake Total 271.25 / 1010.00 738.75 / 1010.00 30 / 30 Output Total 925 / 2075 1150 / 2075 Balance -653.75 / -1065.00 -411.25 / -1065.00 Weight 82.3 kg Intake: IV 271.25 / 770.00 498.75 / 770.00 Oral 240 / 240 Output: Urine 925 / 1925 1000 / 1925 Estimated Blood Loss 150 / 150 Other: Urine Color Yellow Yellow Urine Appearance Clear Clear Urine Odor Strong Normal Comment pT stated void ATT Data Completed and Pending Labs on day of discharge: Labs from last 24 hours 11/15/24 06:02: WBC 10.19, RBC 2.94 L, Hgb 9.2 L, Hct 27.3 L, MCV 93, MCH 31.3, MCHC 33.7, RDW 13.5, Plt Count 217, MPV 10.1, Sodium 136, Potassium 4.6 D, Chloride 105, Carbon Dioxide 23.9, Anion Gap 7.1, BUN 14, Creatinine 0.7, Est GFR (CKD-EPI 2020) 95.32, Glucose 133 H, Calcium 8.7 PFSH All Active Problems Avulsion of left patellar tendon (Acute) Fracture of left tibial plateau (Acute) Social History Smoking/Tobacco Use Status: Never Smoking risk assessment performed?: Yes Alcohol Intake: never Substance use type: does not use Housing: house Time Spent with Patient Time Spent with Patient: <45 minutes Time was spent: preparing to see the patient(eg.review tests), ordering med ications,tests, procedures, counseling the patient and care coordination
--- NOTE | 2024-11-15 09:23 | CMDISCH_ITS ---
Date of service: 11/15/24 Time of Service: 09:29 LACE Index Scoring Tool Questions: Length of Stay (in days): 2 Was the patient admitted via the E.D.?: Yes E.D. Visits: 1 Answers: Total Score: 6 Risk of Readmission: Low Risk Care Management Discharge Plan Reason for Hospitalization: Left Tibial Plateau Fracture Discharge Plan: Shellie will be discharged home, with new home health PT. She will follow up with her surgeon, PCP and plan of care and transport with family. CM will follow and continue to support discharge planning. Patient/Family Education Needs: Review of discharge instructions, activity, limitation, and plan of care. Discuss Ask me Three. Services Needed at Discharge: Home Health Care Services (PT) SDOH Health Related Social Needs: Health related social needs feeling lonely/isolated (Z 60.8) Health related social needs details none Health related social needs details: none
[2024-11-15] MEDS: traMADol 50 MG TAB PO (10:29)
--- NOTE | 2024-11-15 11:28 | W.PM.DS.N ---
Date of service: 11/15/24 Time of Service: 07:45 DS: Diagnosis Discharge Diagnosis (1) Fracture of left tibial plateau: Status: Acute (2) Avulsion of left patellar tendon: Status: Acute Discharge Plan Disposition Patient Disposition: Home W/Home Health Services Condition: Good Discharge Details Reason For Visit: Left Tibial Plateau Fracture Admit Date/Time: 11/13/24 17:52 Admit Provider: Jean-Paul Khan Attending Provider: Jean-Paul Khan Primary Care Provider: Unknown,Unknown Hospital Course Hospital Course: Patient was admitted to the medical/surgical floor for pain management and mobilization of the fracture. The surgery was tolerated well without any notable medical, surgical, or anesthetic complications. Mobilization began postoperatively. She was voiding spontaneously. Vitals were stable. Physical therapy worked with the patient and was cleared for discharge home. No acute medical issues. Pain was controlled on oral regimen. Home Meds and New Rx's Prescriptions: New acetaminophen 500 mg tablet 1,000 mg PO Q8H PRN (Reason: pain) Qty: 90 3RF aspirin 81 mg tablet,delayed release (DR/EC) 81 mg PO BID Qty: 60 0RF celecoxib 200 mg capsule 200 mg PO BID PRN (Reason: pain) Qty: 60 1RF tramadol 50 mg tablet 50 mg PO Q4H PRNQty: 12 0RF Continued omeprazole 20 mg capsule,delayed release(DR/EC) 20 mg PO DAILY fluoxetine 40 mg capsule 40 mg PO DAILY bupropion HCl 300 mg tablet extended release 24 hr 300 mg PO DAILY Discharge Instructions Instructions: Oxycodone Additional Instructions: Orthopaedic Instructions: - You should keep the knee immobilizer on at all times. - You should remove the MICHEAL wrap on Tuesday. The dressing of the wound (Mepilex) will stay in place until followup. - Keep the leg elevated as much as possible with foot slightly higher than the knee. - You may loosen the knee immobilizer and inspect the skin on the front of the knee, applying ice. You may keep it undone while the leg is supported and you are awake. However, you should have this fastened tightly when asleep, not paying attention, or moving. - You should use the walker/crutches to mobilize and may place the foot on the ground but not stepping on it fully (touchdown weight-bearing) - Utilize Celebrex and Tylenol for pain. You have Tramadol for breakthrough pain. - Start taking a baby Aspirin 81mg twice a day. - Followup in 2 weeks. 1. Encounter Date and Reason I certify that Shellie Reece was seen by Jean-Paul Khan MD on 11/15/24 and that I had a [id number] encounter with this patient that meets the physician face to face encounter requirements. 2. Clinical Findings Supporting Skilled Need and Homebound Status I certify that home health services are medically necessary, include either intermittent fpc and/or physical/speech therapy, and that this patient is homebound in that absences from the home require considerable and taxing effort and are infrequent or of short duration, or are attributable to the need to receive medical care. [X] (a) Attached documentation from encounter provides clinical findings supporting skilled need and homebound status (including what assistance patient requires to leave the home). The encounter with the patient was in whole, or in part, for the following medical condition, which is the primary reason for home health care: Left Tibial Plateau Fracture [facility]: Physical Therapy: Shlelie will benefit from home health physical occupational therapy as she recovers from a complex left tibial plateau fracture. She is touchdown weightbearing with knee immobilizer locked in extension at all times until instructed otherwise. She may remove the knee immobilizer when the knee is supported and fully straight to perform skin checks and apply ice which should be reapplied for all activity. Speech Therapy: Homebound: Shellie is unable to leave her home unassisted due to significant weakness and limitations following knee fracture.. 3. Certification and Authentication I certify that I composed the above information based on my clinical judgement relating to this patient's medical condition and, if applicable, clinical findings communicated to me by the NPP or inpatient physician who performed the Home Health Referral. All further orders will be obtained through Dr. Khan Stand Alone Forms: Nursing Discharge Form Referrals: Jean-Paul Khan MD [ [facility] STAFF PHYSICIAN] - 11/29/24 1:15 pm Activity:: TDWB with immobilizer Equipment/Supplies:: Walker Diet:: As Tolerated Discharge Orders Discharge Orders: Discharge Order (Routine); Ordered 11/15/24 Ordered By: Jean-Paul Khan DS: Summary Time Spent with Patient providing and/or coordinating discharge services: Greater than 30 minutes Status at Discharge Functional status at discharge: uses cane/walker Overall status at discharge: patient is progressing back to baseline Mental Status: mental status grossly normal Speech and Movement: speech and movement normal Mood: congruent mood Affect: normal affect Quality:SDOH Health Related Social Needs: Health related social needs feeling lonely/isolated (Z60.8) Health related social needs details none Health related social needs details: none Exam Psych Mental Status: mental status grossly normal Speech and Movement: speech and movement normal Mood: congruent mood Affect: normal affect DS: Data Vitals/I&O Vitals and I&O: Vital Signs Temperature 36.6 C 11/15/24 08:02 Temperature Source Temporal Artery Scan 11/15/24 08:02 Pulse 64 11/15/24 08:02 Pulse Rhythm Regular 11/13/24 19:56 Respiratory Rate 14 11/15/24 08:02 Respiratory Effort Normal 11/13/24 19:56 Respiratory Depth Normal 11/13/24 19:56 Respiratory Pattern Normal 11/13/24 19:56 Blood Pressure 120/72 11/15/24 08:02 Blood Pressure Mean 88 11/15/24 08:02 Pulse Oximetry 96 11/15/24 08:02 Oxygen Delivery Method Room Air 11/15/24 08:02 Oxygen Flow Rate 0 11/15/24 08:02 Pain Level 5 11/15/24 04:07 Intake & Output 11/14/24 11/14/24 11/15/24 11:59 23:59 11:59 Intake Total 271.25 / 1010.00 738.75 / 1010.00 390 / 390 Output Total 925 1150 / 2074 100 / 100 Balance -653.75 / -1065.00 -411.25 / -1065.00 290 / 290 Weight 82.3 kg Intake: IV 271.25 / 770.00 498.75 / 770.00 30 / 30 Oral 240 / 240 360 / 360 Output: Urine 925 / 1925 1000 / 1925 100 / 100 Estimated Blood Loss 150 / 150 Other: Urine Color Yellow Yellow Urine Appearance Clear Clear Urine Odor Strong Normal Comment pT stated void ATT unmeasurable into commode, small amount. Data Completed and Pending Labs on day of discharge: Labs from last 24 hours 11/15/24 06:02: WBC 10.19, RBC 2.94 L, Hgb 9.2 L, Hct 27.3 L, MCV 93, MCH 31.3, MCHC 33.7, RDW 13.5, Plt Count 217, MPV 10.1, Sodium 136, Potassium 4.6 D, Chloride 105, Carbon Dioxide 23.9, Anion Gap 7.1, BUN 14, Creatinine 0.7, Est GFR (CKD-EPI 2020) 95.32, Glucose 133 H, Calcium 8.7 PFSH All Active Problems Avulsion of left patellar tendon (Acute) Fracture of left tibial plateau (Acute) Social History Smoking/Tobacco Use Status: Never Smoking risk assessment performed?: Yes Alcohol Intake: never Substance use type: does not use Housing: house Time Spent with Patient Time Spent with Patient: <45 minutes Time was spent: preparing to see the patient(eg.review tests), obtaining and/or reviewing separately otained hiistory and referring, communicating with other health behavioral health care coordinator
--- NOTE | 2024-11-15 12:08 | PT.INTREAT ---
PT Notes Visit Reasons: Left Tibial Plateau Fracture Inpatient Physical Therapy Treatment Note [facility] Date: 11/15/2024 PRECAUTIONS: TDWB left LE with knee immobilizer on at all times may remove for skin check SUBJECTIVE: Patient reports she is feeling so much better after surgery now that the knee is stabilized. She states she knows she supposed to have the knee immobilizer on but I was getting dressed. OBJECTIVE: Patient presented seated at edge of the bed with knee immobilizer not on. Patient educated on need to have knee immobilizer on prior to getting out of bed as per MD order. ? PAIN: Denies pain pt was premedicated Therapeutic Activities ([id number][]): Direct one-on-one instruction in dynamic activities to improve functional performance. ?? Provided cues for safety walker management during the following functional tasks ?? ?Independent bed mobility Transfers sit to stand with cues for proper hand placement to push up from surface as patient preference to place hands on walker and press up to stand Stand to sit cues to reach back to ensure chair/toilet is in proper position Facilitated ambulation with FWW SBA 30 feet patient performing nonweightbearing by choice. Including turns and small spaces on level surfaces. Patient required cues for FWW placement slightly further in front of her FWW was adjusted to proper height to allow press through bilateral upper extremity for advancing lower extremity. -Patient independent donning and doffing knee immobilizer after cue for proper placement to ensure knee immobilizer is high enough on her leg/utilizing middle strap of knee immobilizer as guide. ASSESSMENT: Patient demonstrates ability to perform transfers bed mobility and ambulation short distance under 30 feet with FWW maintaining weightbearing with supervision. Patient prefers to perform nonweightbearing at this time as she is fearful of putting her foot on the floor for touchdown weightbearing. She does intermittently utilize touchdown weightbearing and static stand for stabilizing while performing tasks with upper extremity. Patient independent donning left knee immobilizer. Patient required cues for when knee immobilizer must be on. PLAN:Anticipate discharge to home TREATMENT CODE/TIME: 96084/9:30 AM?9:54 AM DISCHARGE RECOMMENDATION: Home with home health PT
== END 2024-11-15 10:51 | disposition home health service (06) | DRG 494 ==
LOC: ER 17:31 → MS 19:36
PROVIDERS: Physician Assistant; Admitting Provider Student in an Organized Health Care Education/Training Program; Emergency Provider Nurse Practitioner Family; Visit Provider Student in an Organized Health Care Education/Training Program
PROC: 0QSH04Z Reposition Left Tibia with Internal Fixation Device, Open Approach (ICD-10-PCS; CPT 27536; principal; 2024-11-14 16:30)
DX: S82.142A Displaced bicondylar fracture of left tibia, initial encounter for closed fracture (principal); W11.XXXA Fall on and from ladder, initial encounter; S76.112A Strain of left quadriceps muscle, fascia and tendon, initial encounter
CPT/HCPCS: 27536; 29505; 36415; 73706; 75635; 76000; 76376; 80048; 80053; 85027; 86850; 86900; 86901; 96360; 96361; 97162; 97530; 99223; 99232; 99285; J1650; 73560; 73564; 73590; 85025; 99239; J0131; J0665; J0690; J1100; J1885; J2250; J2405; J2704; J3490

== ENCOUNTER 2024-11-29 13:35 | Outpatient (CLI) | payer MEDICARE, SELFPAY ==
--- NOTE | 2024-11-29 14:00 | DI.RAD_ITS ---
Exam(s) XR KNEE LT 2V AP,LAT EXAM: XR KNEE LT 2V AP,LAT CLINICAL HISTORY: 1ST POST OP S/P ORIF TIB. TECHNIQUE: 2D digital imaging was performed. COMPARISON: CR XR KNEE LT 4V AP,LAT,PRANAY,PAT from 11/13/2024 FINDINGS: Two views-AP and lateral There is an AP orientated screw (placed 11/14/2024) in the anterior tibial tubercle with realignment of the previously described fracture fragment and present normal position of the patella. Joint effusion-hemarthrosis again noted. No significant joint space narrowing. IMPRESSION: Improved alignment. Satisfactory appearance DATA REPOSITORY: RADIATION DOSE DELIVERED:
== END 2024-11-29 13:36 | disposition home or self-care (01) ==
LOC: DIORS 13:36
PROVIDERS: PCP Family Medicine; Referring Provider Family Medicine; Visit Provider Physician Assistant
DX: S82.142D Displaced bicondylar fracture of left tibia, subsequent encounter for closed fracture with routine healing (principal); X58.XXXD Exposure to other specified factors, subsequent encounter; S86.892D Other injury of other muscle(s) and tendon(s) at lower leg level, left leg, subsequent encounter
CPT/HCPCS: 99024; 73560

== ENCOUNTER 2024-12-27 13:55 | Outpatient (CLI) | payer MEDICARE, SELFPAY ==
--- NOTE | 2024-12-27 13:45 | DI.RAD_ITS ---
Exam(s) XR KNEE LT 2V AP,LAT EXAM: XR KNEE LT 2V AP,LAT CLINICAL HISTORY: S/P ORIF L TIBIAL PLATEAU. TECHNIQUE: 2D digital imaging was performed. Three views. COMPARISON: CR XR KNEE LT 4V AP,LAT,PRANAY,PAT from 11/13/2024 XA XR KNEE LT 1V from 11/14/2024 CR XR KNEE LT 2V AP,LAT from 11/29/2024 FINDINGS: BONES: A screw is again noted in the proximal tibia at the level of the tubercle for fracture fixation. Stable alignment of the proximal tibial fracture. no bony destructive lesion is seen. JOINTS: There is anterior subluxation of the tibia with respect to the distal femur which was noted on the 1st exam but not apparent on the most recent exam.. A joint effusion is seen. SOFT TISSUE: Normal. IMPRESSION: Stable fracture alignment. Anterior subluxation of the tibia with respect to the femur. DATA REPOSITORY: RADIATION DOSE DELIVERED:
== END 2024-12-27 13:56 | disposition home or self-care (01) ==
LOC: DIORS 13:59
PROVIDERS: PCP Family Medicine; Visit Provider Physician Assistant
DX: S82.142A Displaced bicondylar fracture of left tibia, initial encounter for closed fracture (principal); X58.XXXA Exposure to other specified factors, initial encounter
CPT/HCPCS: 99024; 73560

== ENCOUNTER 2025-02-07 15:13 | Outpatient (CLI) | payer MEDICARE, SELFPAY ==
--- NOTE | 2025-02-07 15:00 | DI.RAD_ITS ---
Exam(s) XR KNEE LT 2V AP,LAT EXAM: XR KNEE LT 2V AP,LAT CLINICAL HISTORY: fx f/u. TECHNIQUE: 2D digital imaging was performed. COMPARISON: CR XR KNEE LT 2V AP,LAT from 12/27/2024 FINDINGS: Two views-AP and lateral Again noted is an AP orientated screw in the proximal tibia at the level the tibial tubercle for fracture fixation. Appearance is unchanged from 12/27/2024. On the present lateral image there is no evidence of obvious anterior subluxation of the tibia with respect to the femoral condyles, as was evident on 12/27/2024 IMPRESSION: Stable satisfactory appearance. DATA REPOSITORY: RADIATION DOSE DELIVERED:
== END 2025-02-07 15:14 | disposition home or self-care (01) ==
LOC: DIORS 15:13
PROVIDERS: PCP Family Medicine; Referring Provider Family Medicine; Visit Provider Student in an Organized Health Care Education/Training Program
DX: S86.892A Other injury of other muscle(s) and tendon(s) at lower leg level, left leg, initial encounter (principal); S82.142A Displaced bicondylar fracture of left tibia, initial encounter for closed fracture; X58.XXXA Exposure to other specified factors, initial encounter
CPT/HCPCS: 99213; 73560